=== PATIENT | female | born 1970 | race Caucasian/White ===

== ENCOUNTER → 2016-12-03 | Outpatient (CLI) | payer OTHER | END | disposition home or self-care (01) | LOC: RAD 14:48 | PROVIDERS: ATTEND Registered Nurse Registered Nurse First Assistant | DX: M50.33 Other cervical disc degeneration, cervicothoracic region (principal); M25.78 Osteophyte, vertebrae; M48.02 Spinal stenosis, cervical region; M41.84 Other forms of scoliosis, thoracic region; M47.894 Other spondylosis, thoracic region; M48.04 Spinal stenosis, thoracic region; M41.82 Other forms of scoliosis, cervical region; M41.86 Other forms of scoliosis, lumbar region | CPT/HCPCS: 72050; 72072; 72082 ==

== ENCOUNTER → 2017-08-07 | Outpatient (CLI) | payer OTHER | END | disposition home or self-care (01) | LOC: RAD 13:10 | PROVIDERS: ATTEND Nurse Practitioner Family | DX: M47.894 Other spondylosis, thoracic region (principal); M47.892 Other spondylosis, cervical region; M41.80 Other forms of scoliosis, site unspecified; Z90.49 Acquired absence of other specified parts of digestive tract | CPT/HCPCS: 72125; 72128 ==

== ENCOUNTER → 2017-08-26 | Outpatient (CLI) | payer OTHER ==
[~2017-08-26] MED LIST: BUSP10TA PO; CYCL-259 PO; IBUP-1223 PO; LEXAPRO PO; OXYC-307 PO
[2017-08-26 15:22] LABS: BASOPHILS # (AUTO) 0.08 x10^3/uL (0-0.1); BASOPHILS % (AUTO) 1 % (0-1); EOSINOPHILS # (AUTO) 0.12 x10^3/uL (0-0.4); EOSINOPHILS % (AUTO) 1 % (1-7); LYMPHOCYTES # (AUTO) 2.84 x10^3/uL (1-3.4); LYMPHOCYTES % (AUTO) 25 % (22-44); MD NO; MEAN CORPUSCULAR HGB CONC 32.9 g/dL (32.4-35.8); MEAN CORPUSCULAR VOLUME 85.2 fL (80-100); MEAN PLATELET VOLUME 8.2 fL (7.4-10.4); MONOCYTES # (AUTO) 0.87 x10^3/uL (0.2-0.8); MONOCYTES % (AUTO) 8 % (2-9); NEUTROPHILS # (AUTO) 7.42 x10^3/uL (1.8-6.8); NEUTROPHILS % (AUTO) 66 % (42-75); PLATELET COUNT 391 x10^3/uL (130-400); RED CELL DISTRIBUTION WIDTH 15.5 % (9.6-15.2)
[2017-08-26 15:32] LABS: ANION GAP 6 mmol/L (5-15); CALCIUM 8.6 mg/dL (8.5-10.1); CHLORIDE 105 mmol/L (98-107)
[2017-08-26 15:34] LABS: CREATININE 0.87 mg/dL (0.55-1.02)
[2017-08-26 15:38] LABS: INTERNATIONAL NORMALIZED RATIO 0.96 (0.93-1.1); PROTHROMBIN TIME 9.9 Seconds (9.6-11.5)
[2017-08-26 15:50] LABS: CULTURE INDICATED? YES; MICROSCOPIC INDICATED
== END | disposition home or self-care (01) ==
LOC: STAR 14:28
PROVIDERS: ATTEND Neurological Surgery
DX: Z01.818 Encounter for other preprocedural examination (principal); M50.30 Other cervical disc degeneration, unspecified cervical region; R00.0 Tachycardia, unspecified
CPT/HCPCS: 36415; 71046; 80048; 81001; 85025; 85610; 85730; 87077; 87086; 93005

== ENCOUNTER → 2017-09-09 | Outpatient (CLI) | payer OTHER ==
[2017-09-09 12:56] LABS: CULTURE INDICATED? YES; MICROSCOPIC AUTO
== END | disposition home or self-care (01) ==
LOC: STAR 12:34
PROVIDERS: ATTEND Neurological Surgery
DX: Z01.818 Encounter for other preprocedural examination (principal); M50.30 Other cervical disc degeneration, unspecified cervical region
CPT/HCPCS: 81001; 87086

== ENCOUNTER → 2017-11-12 | Outpatient (CLI) | payer OTHER ==
[~2017-11-12] MED LIST changes: +AMIT50TA PO; +ESCI20TA10 PO; +NALO25TA PO; +PANT40TA5 PO; +RANI150T4 PO; +SUMA100T4 PO
== END | disposition home or self-care (01) ==
LOC: RAD 13:51
PROVIDERS: ATTEND Nurse Practitioner Family
DX: M47.812 Spondylosis without myelopathy or radiculopathy, cervical region (principal)
CPT/HCPCS: 72040

== ENCOUNTER → 2018-02-05 | Outpatient (CLI) | payer OTHER | END | disposition home or self-care (01) | LOC: RAD 12:00 | PROVIDERS: ATTEND Nurse Practitioner Family | DX: M50.322 Other cervical disc degeneration at C5-C6 level (principal) | CPT/HCPCS: 72050 ==

== ENCOUNTER → 2018-03-17 | Outpatient (CLI) | payer OTHER | END | disposition home or self-care (01) | LOC: CFH 12:33 | PROVIDERS: ATTEND Nurse Practitioner Family | DX: M47.812 Spondylosis without myelopathy or radiculopathy, cervical region (principal); M48.02 Spinal stenosis, cervical region | CPT/HCPCS: 72040; 72141 ==

== ENCOUNTER → 2018-05-22 | Outpatient (CLI) | payer OTHER ==
[~2018-05-22] MED LIST changes: +OMNIPAQUE 350 MG/ML, 100ML BOTTLE ONE
== END | disposition home or self-care (01) ==
LOC: CFH 09:56
PROVIDERS: ATTEND Nurse Practitioner Family
DX: Z12.31 Encounter for screening mammogram for malignant neoplasm of breast (principal); G43.909 Migraine, unspecified, not intractable, without status migrainosus; R51 Headache; N19 Unspecified kidney failure
CPT/HCPCS: 70460; 77067; Q9967

== ENCOUNTER → 2019-03-29 | Outpatient (CLI) | payer OTHER ==
[~2019-03-29] MED LIST changes: +BUSP30TA PO; +FLUT9.9S NS; -OMNIPAQUE 350 MG/ML, 100ML BOTTLE ONE; +chantix PO
[2019-03-29 11:50] LABS: BASOPHILS # (AUTO) 0.06 x10^3/uL (0-0.1); BASOPHILS % (AUTO) 1 % (0-1); EOSINOPHILS # (AUTO) 0.11 x10^3/uL (0-0.4); EOSINOPHILS % (AUTO) 2 % (1-7); LYMPHOCYTES # (AUTO) 1.56 x10^3/uL (1-3.4); LYMPHOCYTES % (AUTO) 21 % (22-44); MD NO; MEAN CORPUSCULAR HEMOGLOBIN 29.4 pg (27.0-34.8); MEAN CORPUSCULAR HGB CONC 33.2 g/dL (32.4-35.8); MEAN CORPUSCULAR VOLUME 88.5 fL (80-100); MEAN PLATELET VOLUME 8.1 fL (7.4-10.4); MONOCYTES # (AUTO) 0.46 x10^3/uL (0.2-0.8); MONOCYTES % (AUTO) 6 % (2-9); NEUTROPHILS # (AUTO) 5.21 x10^3/uL (1.8-6.8); NEUTROPHILS % (AUTO) 70 % (42-75); PLATELET COUNT 349 x10^3/uL (130-400); RED BLOOD COUNT 5.07 x10^6/uL (3.82-5.3); RED CELL DISTRIBUTION WIDTH 14.8 % (9.6-15.2)
[2019-03-29 11:56] LABS: ALANINE AMINOTRANSFERASE 20 U/L (12-78); ALBUMIN 3.7 g/dL (3.4-5.0); ANION GAP 5 mmol/L (5-15); CALCIUM 8.6 mg/dL (8.5-10.1); CHLORIDE 106 mmol/L (98-107)
[2019-03-29 11:59] LABS: ALKALINE PHOSPHATASE 83 U/L (45-117); BILIRUBIN,TOTAL 0.3 mg/dL (0.2-1.0); TOTAL PROTEIN 7.5 g/dL (6.4-8.2)
== END | disposition home or self-care (01) ==
LOC: STAR 10:24
PROVIDERS: ATTEND Surgery
DX: Z01.818 Encounter for other preprocedural examination (principal)
CPT/HCPCS: 36415; 80053; 85025; 93005

== ENCOUNTER 2019-04-05 07:27 | Inpatient (IN) | payer OTHER ==
[~2019-04-05] VITALS: Ht 170.2 cm; Wt 107.0 kg
[2019-04-05 08:22] VITALS: BP 129/89
[2019-04-05 08:25] LABS: HCG UR SG 1.017 (1.003-1.030)
[2019-04-05] MEDS ORDERED: LACTATED RINGERS 1,000 ML IV SCH (08:26)
[2019-04-05] MEDS ORDERED: BUPIVACAINE/PF-EPI 0.25% 1:200K ONE (08:58)
[2019-04-05] MEDS ORDERED: THROMBIN 5,000 UNIT VIAL TP ONE (08:58)
[2019-04-05] MEDS ORDERED: BACITRACIN 50,000 UNIT ONE (08:59)
[2019-04-05] MEDS ORDERED: MIDAZOLAM 1 MG/ML, 2ML ONE (09:05)
[2019-04-05] MEDS ORDERED: FENTANYL PF 250 MCG/5ML ONE (09:20)
[2019-04-05] MEDS ORDERED: PROPOFOL 10 MG/ML, 20ML ONE (09:54)
[2019-04-05] MEDS ORDERED: CEFAZOLIN 1,000 MG ONE (09:54)
[2019-04-05] MEDS ORDERED: hydrALAzine 20 MG/ML, 1ML ONE (09:54)
[2019-04-05] MEDS ORDERED: SUCCINYLCHOLINE 20 MG/ML, 10ML ONE (09:54)
[2019-04-05] MEDS ORDERED: KETOROLAC 30 MG/1 ML ONE (09:54)
[2019-04-05] MEDS ORDERED: DEXAMETHASONE 4 MG/ML, 1ML ONE (09:54)
[2019-04-05] MEDS ORDERED: ESMOLOL 100 MG/10 ML ONE (09:54)
[2019-04-05] MEDS ORDERED: FENTANYL PF 100 MCG/2ML ONE ×5 (10:43→12:44)
[2019-04-05] MEDS ORDERED: ONDANSETRON 2MG/ML, 2ML IV PRN ×2 (12:00→15:00)
[2019-04-05] MEDS ORDERED: LABETALOL 5MG/ML, 20ML IV PRN (12:00)
[2019-04-05] MEDS ORDERED: hydrALAzine 20 MG/ML, 1ML IV PRN ×2 (12:00→15:00)
[2019-04-05] MEDS ORDERED: OXYcodone 5 MG/5 ML ORAL.SOL UDC PO PRN (12:00)
[2019-04-05] MEDS ORDERED: MEPERIDINE/PF 25MG/ML,1ML ONE (12:22)
[2019-04-05] MEDS ORDERED: DIAZEPAM 5 MG/ML, 2ML ONE (12:30)
[2019-04-05] MEDS: DIAZEPAM 5 MG/ML, 2ML IVPush PRN ×2 (12:33→12:38)
[2019-04-05] MEDS: FENTANYL PF 100 MCG/2ML IV PRN ×4 (12:34→12:57)
[2019-04-05] MEDS ORDERED: OXYcodone 5 MG/5 ML ORAL.SOL UDC ONE (12:50)
[2019-04-05] MEDS ORDERED: HYDROmorphone 1 MG/ML, 1ML INJ ONE ×3 (13:00→14:23)
[2019-04-05] MEDS: HYDROmorphone 2 MG/ML, 1ML IVPush PRN ×5 (13:02→19:41)
[2019-04-05] MEDS ORDERED: ONDANSETRON 2MG/ML, 2ML ONE (13:29)
[2019-04-05 14:20] VITALS: BP 112/62
[2019-04-05] MEDS ORDERED: ACETAMINOPHEN 325 MG TABLET PO PRN (15:00)
[2019-04-05] MEDS ORDERED: ACETAMINOPHEN 650 MG SUPP PR PRN (15:00)
[2019-04-05] MEDS ORDERED: DIPHENHYDRAMINE 25 MG CAPSULE PO PRN (15:00)
[2019-04-05] MEDS ORDERED: DIPHENHYDRAMINE 50 MG/ML, 1ML IV PRN (15:00)
[2019-04-05] MEDS ORDERED: ENALAPRILAT 1.25 MG/ML, 2ML IV PRN (15:00)
[2019-04-05] MEDS ORDERED: SUMATRIPTAN 100 MG TABLET PO PRN (15:00)
[2019-04-05] MEDS ORDERED: LORazepam 2 MG/ML, 1ML IV PRN (15:00)
[2019-04-05] MEDS ORDERED: HYDROmorphone 2MG TABLET PO PRN (15:00)
[2019-04-05] MEDS: CYCLOBENZAPRINE 10 MG TABLET PO SCH ×2 (15:46→22:21)
[2019-04-05] MEDS: GABAPENTIN 300 MG CAPSULE PO SCH ×2 (15:46→22:21)
[2019-04-05] MEDS: OXYcodone/APAP 10/325MG TABLET PO SCH ×2 (15:46→22:21)
[2019-04-05] MEDS: D5%-LACTATED RINGERS 1,000 ML IV SCH (17:16)
[2019-04-05 19:46] VITALS: BP 116/66
[2019-04-05] MEDS: SODIUM CHLORIDE FLUSH 10ML SYR IVF SCH (20:46)
[2019-04-05] MEDS ORDERED: FLUTICASONE NASAL SPRAY 16GM NAS SCH (21:00)
[2019-04-05] MEDS ORDERED: AMITRIPTYLINE 100 MG TABLET PO SCH (21:00)
[2019-04-06] MEDS: D5%-LACTATED RINGERS 1,000 ML IV SCH ×3 (00:19→16:23)
[2019-04-06] MEDS: HYDROmorphone 2 MG/ML, 1ML IVPush PRN ×6 (00:19→13:45)
[2019-04-06 03:22] VITALS: BP 118/76
[2019-04-06 04:50] LABS: BASOPHILS # (AUTO) 0.04 x10^3/uL (0-0.1); BASOPHILS % (AUTO) 0 % (0-1); EOSINOPHILS % (AUTO) 0 % (1-7); LYMPHOCYTES # (AUTO) 0.84 x10^3/uL (1-3.4); LYMPHOCYTES % (AUTO) 6 % (22-44); MD NO; MEAN CORPUSCULAR HEMOGLOBIN 29.3 pg (27.0-34.8); MEAN CORPUSCULAR HGB CONC 32.8 g/dL (32.4-35.8); MEAN CORPUSCULAR VOLUME 89.2 fL (80-100); MEAN PLATELET VOLUME 7.9 fL (7.4-10.4); MONOCYTES # (AUTO) 0.63 x10^3/uL (0.2-0.8); MONOCYTES % (AUTO) 4 % (2-9); NEUTROPHILS # (AUTO) 13.23 x10^3/uL (1.8-6.8); NEUTROPHILS % (AUTO) 90 % (42-75); PLATELET COUNT 298 x10^3/uL (130-400); RED BLOOD COUNT 4.22 x10^6/uL (3.82-5.3); RED CELL DISTRIBUTION WIDTH 15.3 % (9.6-15.2)
[2019-04-06] MEDS: LORazepam 1MG TABLET PO PRN ×2 (04:50→16:21)
[2019-04-06] MEDS ORDERED: PANTOPROZOLE 40MG TABLET PO SCH (06:00)
[2019-04-06 07:52] VITALS: BP 94/55
[2019-04-06] MEDS: GABAPENTIN 300 MG CAPSULE PO SCH ×2 (08:30→16:21)
[2019-04-06] MEDS: CYCLOBENZAPRINE 10 MG TABLET PO SCH ×2 (08:30→16:21)
[2019-04-06] MEDS: OXYcodone/APAP 10/325MG TABLET PO SCH ×3 (08:31→18:29)
[2019-04-06] MEDS: SODIUM CHLORIDE FLUSH 10ML SYR IVF SCH (08:35)
[2019-04-06 08:36] VITALS: BP 104/68
[2019-04-06] MEDS ORDERED: ESCITALOPRAM 10MG TABLET PO SCH (09:00)
[2019-04-06] MEDS ORDERED: VARENICLINE 1MG TABLET PO SCH (09:00)
[2019-04-06] MEDS ORDERED: NALOXEGOL OXALATE 25 MG HOMEMEDPO SCH (09:00)
[2019-04-06] MEDS ORDERED: BUSPIRONE 10 MG TABLET PO SCH (09:00)
[2019-04-06 12:37] VITALS: BP 103/55
[2019-04-06] MEDS ORDERED: AMITRIPTYLINE 50 MG TABLET PO SCH (21:00)
== END 2019-04-06 19:10 | disposition home or self-care (01) | DRG 30 ==
LOC: ORIP 07:27 → 4NW 14:15
PROVIDERS: ADMIT Surgery; ATTEND Surgery
PROC: 01N10ZZ Release Cervical Nerve, Open Approach (ICD-10-PCS; 2019-04-05)
PROC: 0PB10ZZ Excision of 1 to 2 Ribs, Open Approach (ICD-10-PCS; principal; 2019-04-05 09:30)
DX: G54.0 Brachial plexus disorders (principal); Z88.5 Allergy status to narcotic agent; Z88.2 Allergy status to sulfonamides; Z88.8 Allergy status to other drugs, medicaments and biological substances; K21.9 Gastro-esophageal reflux disease without esophagitis; F41.9 Anxiety disorder, unspecified
CPT/HCPCS: 36415; J7121; 71045; 81025; 85025; 86850; 86900; 88304; 88311; G0378; J0690; J1100; J1170; J1885; J2250; J2405; J2704; J3010; J3360; J0330; J0360; J2060; J7120

== ENCOUNTER → 2020-08-01 | Outpatient (CLI) | payer MEDICAID, OTHER ==
[~2020-08-01] MED LIST changes: +ALPR1TAB2 PO; -CYCL-259 PO; +CYCL10TA2 PO; -NALO25TA PO; +NALO25TA4 PO; -OXYC-307 PO; +OXYC-380 PO; -PANT40TA5 PO; +PANT40TA6 PO
== END | disposition home or self-care (01) ==
LOC: CFH 08:45
PROVIDERS: ATTEND Internal Medicine Cardiovascular Disease
DX: I08.1 Rheumatic disorders of both mitral and tricuspid valves (principal); F17.200 Nicotine dependence, unspecified, uncomplicated
CPT/HCPCS: 93306

== ENCOUNTER → 2020-08-10 | Outpatient (CLI) | payer MEDICAID ==
[~2020-08-10] MED LIST changes: +ALPRazolam 1MG TAB ONE
== END | disposition home or self-care (01) ==
LOC: EDSTATUS 08-04 10:15 → RAD 09:00
DX: M47.24 Other spondylosis with radiculopathy, thoracic region (principal); G43.909 Migraine, unspecified, not intractable, without status migrainosus; F17.210 Nicotine dependence, cigarettes, uncomplicated; Z72.89 Other problems related to lifestyle; Z88.1 Allergy status to other antibiotic agents; Z88.2 Allergy status to sulfonamides; Z88.5 Allergy status to narcotic agent; Z79.899 Other long term (current) drug therapy
CPT/HCPCS: 72141; 72146

== ENCOUNTER → 2020-10-26 | Outpatient (CLI) | payer MEDICAID ==
[~2020-10-26] MED LIST changes: -ALPRazolam 1MG TAB ONE
== END | disposition home or self-care (01) ==
LOC: CFH 09:08
PROVIDERS: ATTEND Nurse Practitioner Family
DX: S86.011A Strain of right Achilles tendon, initial encounter (principal); M76.60 Achilles tendinitis, unspecified leg; X58.XXXA Exposure to other specified factors, initial encounter; Y93.89 Activity, other specified; Y92.89 Other specified places as the place of occurrence of the external cause; Y99.8 Other external cause status